=== PATIENT | female | born 1940 | race Caucasian/White ===

== ENCOUNTER 2020-04-14 06:48 | Outpatient (NON) | payer MEDICARE, SELFPAY ==
[2020-04-14 19:05] LABS: SARS-CoV-2 RNA PCR Negative
== END 2020-04-14 06:49 ==
PROVIDERS: PCP Internal Medicine; Visit Provider Nurse Practitioner
DX: Z20.828 Contact with and (suspected) exposure to other viral communicable diseases (principal); R05 Cough
CPT/HCPCS: 87635; C9803; U0003

== ENCOUNTER 2020-04-16 09:19 | Outpatient (CLI) | payer MEDICARE, SELFPAY ==
--- NOTE | ~2020-04-16 | XR_ITS ---
EXAMINATION: XR chest 2V 04/16/2020 09:40 INDICATION: Cough PROCEDURE: 2 view chest COMPARISON: Comparison to multiple prior studies sequentially, with oldest reviewed study dated 08/07. FINDINGS: The lungs are clear. The cardiomediastinal silhouette is within normal limits. There are no pleural effusions. There is no pneumothorax suspected. IMPRESSION: 1: NO ACUTE CARDIOPULMONARY DISEASE. Reviewed, dictated and finalized at location B.
== END 2020-04-16 09:20 | disposition home or self-care (01) ==
PROVIDERS: PCP Internal Medicine; Visit Provider Internal Medicine
DX: R05 Cough (principal)
CPT/HCPCS: 71046

== ENCOUNTER → 2020-04-19 10:43 | Outpatient (CLI) | payer MEDICARE, SELFPAY ==
--- NOTE | ~2020-04-19 | US_ITS ---
EXAMINATION: US soft tissue head and neck DATE: 04/19/2020 11:56 INDICATION: Soft palpable lump at the inferior left neck/supraclavicular region. TECHNIQUE: Multiple grayscale and Doppler ultrasound images of the region of concern at the base of t he left neck/supraclavicular region were obtained. COMPARISON: CT chest dated 07/30/2017 FINDINGS/IMPRESSION: Normal appearance to the subcutaneous fat at the region of concern. No abnormal masses or fluid colle ctions identified. Reviewed, dictated and finalized at location B.
== END ==
PROVIDERS: Visit Provider Internal Medicine
DX: R22.2 Localized swelling, mass and lump, trunk (principal)
CPT/HCPCS: 76536